=== PATIENT | female | born 2005 | race Caucasian/White ===

== ENCOUNTER 2025-05-14 17:59 | Emergency (ER) | payer OTHER, BC ==
[2025-05-14 19:47] LABS: APPEARANCE,URINE CLEAR (CLEAR); GLUCOSE,URINE NEGATIVE (NEGATIVE); OCCULT BLOOD,URINE TRACE-LYSED (NEGATIVE)
[2025-05-14 19:52] LABS: SQUAMOUS EPITHELIAL CELLS,UR RARE /HPF; UROTHELIAL CELLS,URINE NOT SEEN /HPF
[2025-05-14] MEDS: Ketorolac 15 MG/ML SDV IM ONE (20:40)
== END 2025-05-14 21:25 | disposition home or self-care (01) ==
LOC: JP.ED 17:59
DX: S42.032A Displaced fracture of lateral end of left clavicle, initial encounter for closed fracture (principal); F17.200 Nicotine dependence, unspecified, uncomplicated; V89.2XXA Person injured in unspecified motor-vehicle accident, traffic, initial encounter
CPT/HCPCS: 70450; 71046; 72052; 73000; 73030; 81001; 81025; 96372; 99284; A9270; J1885